=== PATIENT | female | born 1945 | race Hispanic/Latino ===

== ENCOUNTER → 2017-05-21 | Outpatient (CLI) | payer MEDICARE | END | disposition home or self-care (01) | LOC: SHCH 12:51 | PROVIDERS: ATTEND Internal Medicine Cardiovascular Disease | DX: R00.2 Palpitations (principal) | CPT/HCPCS: 93306 ==

== ENCOUNTER → 2018-01-26 | Outpatient (CLI) | payer MEDICARE | END | disposition home or self-care (01) | LOC: RAH 11:11 | PROVIDERS: ATTEND Physical Medicine & Rehabilitation | DX: M16.11 Unilateral primary osteoarthritis, right hip (principal) | CPT/HCPCS: 73502 ==

== ENCOUNTER → 2018-03-25 | Outpatient (CLI) | payer MEDICARE | END | disposition home or self-care (01) | LOC: RAH 10:28 | PROVIDERS: ATTEND Physical Medicine & Rehabilitation | DX: M17.11 Unilateral primary osteoarthritis, right knee (principal); M21.061 Valgus deformity, not elsewhere classified, right knee | CPT/HCPCS: 73560 ==

== ENCOUNTER → 2019-11-23 | Outpatient (CLI) | payer MEDICARE | END | disposition home or self-care (01) | LOC: SHCH 12:40 | PROVIDERS: ATTEND Internal Medicine Cardiovascular Disease | DX: I87.2 Venous insufficiency (chronic) (peripheral) (principal); I73.9 Peripheral vascular disease, unspecified | CPT/HCPCS: 93925; 93970 ==

== ENCOUNTER 2021-11-20 06:55 | Day surgery (SDC) | payer MEDICARE ==
[2021-11-18 12:45] LABS: BASOPHILS % (AUTO) 0.5 % (0.0-5.0); EOSINOPHILS % (AUTO) 1.5 % (0.0-8.0); HEMATOCRIT 38.4 % (36-48); LYMPHOCYTES % (AUTO) 17.7 % (21.0-51.0); MEAN CORPUSCULAR HEMOGLOBIN 31.7 pg (27.0-33.0); MEAN CORPUSCULAR HGB CONC 32.6 g/dL (32.0-36.0); MEAN CORPUSCULAR VOLUME 97.5 fL (79-99); MONOCYTES % (AUTO) 9.8 % (3.0-13.0); NEUTROPHILS % (AUTO) 70.2 % (40.0-77.0); PLATELET COUNT (AUTO) 313 K/uL (130-400); RED BLOOD CELL COUNT(AUTO) 3.94 MIL/uL (4.00-5.50); RED CELL DISTRIBUTION WIDTH 12.4 % (11.0-15.5); WHITE BLOOD COUNT (AUTO) 8.6 K/uL (4.8-10.8)
[2021-11-18 12:54] LABS: CREATININE 1.8 mg/dL (0.5-1.5); POTASSIUM 4.6 mmol/L (3.5-5.1)
[2021-11-18 12:55] LABS: PROTHROMBIN TIME 10.9 SEC (9.6-11.6)
[2021-11-18 12:56] LABS: PARTIAL THROMBOPLASTIN TIME 29.3 SEC (26.3-35.5)
[2021-11-19 09:25] VITALS: BP 143/76
[2021-11-20] VITALS (9 sets, daily range): BP systolic 110–168; BP diastolic 58–84
[~2021-11-20] VITALS: Ht 157.5 cm; Wt 77.1 kg
[~2021-11-20 06:55] MED LIST: CETI-89 PO; DILT180T12 PO; LISI1TAB51 PO; MULT-1203 PO; RIVA20TA PO; ROSU20TA31 PO; vitamin d PO
[2021-11-20 07:28] LABS: CREATININE 1.5 mg/dL (0.5-1.5); POTASSIUM 4.3 mmol/L (3.5-5.1)
[2021-11-20] MEDS ORDERED: CEFAZOLIN SODIUM 1 GM VIAL IVP ONE (08:00)
[2021-11-20] MEDS ORDERED: LIDOCAINE HCL 1% 20 ML VIAL ONE (08:21)
[2021-11-20] MEDS ORDERED: BUPIVACAINE/PF 0.25% 30ML VIAL IJ ONE (08:22)
[2021-11-20] MEDS ORDERED: MIDAZOLAM HCL 1 MG/ML 2ML VIAL ONE ×2 (08:22→09:14)
[2021-11-20] MEDS ORDERED: MEPERIDINE-PF 25 MG/ML SYG ONE ×2 (08:23→09:15)
[2021-11-20] MEDS: 0.9%NACL 1000ML 1,000 ML IV SCH ×2 (08:29→13:33)
[2021-11-20] MEDS ORDERED: TRAM50TA4 PO (10:11)
[2021-11-20] MEDS ORDERED: ACETAMINOPHEN WITH CODEINE 1 TAB TAB PO PRN (10:30)
== END 2021-11-20 13:20 | disposition home or self-care (01) ==
LOC: DAH 06:55
PROVIDERS: ATTEND Internal Medicine Cardiovascular Disease
DX: I49.5 Sick sinus syndrome (principal); I48.0 Paroxysmal atrial fibrillation; I10 Essential (primary) hypertension; E78.5 Hyperlipidemia, unspecified; I73.9 Peripheral vascular disease, unspecified; I87.2 Venous insufficiency (chronic) (peripheral); K21.9 Gastro-esophageal reflux disease without esophagitis; M19.90 Unspecified osteoarthritis, unspecified site; Z98.890 Other specified postprocedural states; Z82.49 Family history of ischemic heart disease and other diseases of the circulatory system; Z83.3 Family history of diabetes mellitus; Z82.3 Family history of stroke; Z79.899 Other long term (current) drug therapy; Z79.01 Long term (current) use of anticoagulants
CPT/HCPCS: 80048 ×2; 85025; 85610; 85730; 36415 ×2; 93005; 33208; 71045; C1785; C1898 ×2; J0690; J7030; J3490; J2250 ×2; J2175 ×2; A4215; A4335; A4222; A4221; A4663; A4216; A6206; A4606; A4223 ×3; 99156; 99157

== ENCOUNTER 2023-12-02 07:33 | Day surgery (SDC) | payer MEDICARE ==
[2023-11-30 09:08] LABS: BASOPHILS # (AUTO) 0.02 K/uL (0.00-0.20); BASOPHILS % (AUTO) 0.4 % (0.0-5.0); EOSINOPHILS # (AUTO) 0.09 K/uL (0.00-0.70); EOSINOPHILS % (AUTO) 1.7 % (0.0-8.0); HEMATOCRIT 40.5 % (36-48); IMMATURE GRANULOCYTE ABSOLUTE 0.01 K/uL (0-1); LYMPHOCYTES # (AUTO) 1.8 K/uL (1.0-4.8); LYMPHOCYTES % (AUTO) 32.4 % (21.0-51.0); MEAN CORPUSCULAR HGB CONC 31.1 g/dL (32.0-36.0); MEAN CORPUSCULAR VOLUME 99.8 fL (79-99); MONOCYTES # (AUTO) 0.6 K/uL (0.1-1.0); MONOCYTES % (AUTO) 11.7 % (3.0-13.0); NEUTROPHILS # (AUTO) 2.9 K/uL (1.8-7.7); NEUTROPHILS % (AUTO) 53.6 % (40.0-77.0); PLATELET COUNT (AUTO) 213 K/uL (130-400); RED BLOOD CELL COUNT(AUTO) 4.06 MIL/uL (4.00-5.50); WHITE BLOOD COUNT (AUTO) 5.4 K/uL (4.8-10.8)
[2023-11-30 09:09] VITALS: BP 173/77; PULSE 77; RESP 16
[2023-11-30 09:18] LABS: CREATININE 1.6 mg/dL (0.5-1.0); POTASSIUM 3.5 mmol/L (3.5-5.1)
[2023-11-30 09:32] LABS: INR 1.11 (0.85-1.15); PROTHROMBIN TIME 11.9 SEC (9.6-11.6)
[2023-11-30 09:34] LABS: PARTIAL THROMBOPLASTIN TIME 30.2 SEC (26.3-35.5)
[~2023-12-02] VITALS: Ht 157.5 cm; Wt 63.3 kg
[2023-12-02] VITALS (11 sets, daily range): BP systolic 126–170; BP diastolic 53–87; PULSE 70–86; RESP 15–18
[~2023-12-02 07:33] MED LIST changes: -DILT180T12 PO; +ERGO500093 PO; +FOLI1TAB85 PO; +FURO20TA6 PO; +GLUC1CAP14 PO; +HYDR25 PO; +ISOS30TA92 PO; -LISI1TAB51 PO; +METO50TA9 PO; -MULT-1203 PO; -ROSU20TA31 PO; +ROSU20TA73 PO; +TURM500C13 PO; -vitamin d PO
[2023-12-02] MEDS: 0.9%NACL 1000ML 1,000 ML IV ONE (08:41)
[2023-12-02] MEDS ORDERED: 0.9%NACL 1000ML 1,000 ML IV SCH ×2 (09:00→12:00)
[2023-12-02] MEDS ORDERED: LIDOCAINE HCL 400MG/20ML VIAL ONE (10:42)
[2023-12-02] MEDS ORDERED: HEParin-NS 1,000 UNIT/500 ML 1,000 ML IV ONE (10:42)
[2023-12-02] MEDS ORDERED: IOHEXOL 350 MG/ML 100ML INFUS..BTL IV ONE (10:42)
[2023-12-02] MEDS ORDERED: NITROGLYCERIN 50MG VIAL ONE (10:43)
[2023-12-02] MEDS ORDERED: BIVALIRUDIN 250 MG/VIAL IV ONE (10:52)
[2023-12-02] MEDS ORDERED: FENTanyl CITRate PF 50 MCG/1 ML 2ML VIAL ONE (10:53)
[2023-12-02] MEDS ORDERED: MIDAZOLAM HCL 1 MG/ML 2ML VIAL ONE (10:53)
[2023-12-02] MEDS ORDERED: IOHEXOL-350 50ML VIAL IV ONE (11:27)
[2023-12-02] MEDS ORDERED: LABETALOL 20MG SYG IV ONE (11:33)
[2023-12-02] MEDS ORDERED: NITROGLYCERIN 0.4 MG SL TAB SL PRN (12:00)
[2023-12-02] MEDS ORDERED: DEXTROSE 50%-WATER 50 ML DISP.SYRIN IV PRN (12:00)
[2023-12-02] MEDS ORDERED: GLUCAGON 1MG KIT 1 MG ML IM PRN (12:00)
[2023-12-02] MEDS ORDERED: METOPROLOL TARTRATE 1 MG/ML 5ML VIAL IV PRN (12:00)
[2023-12-02] MEDS ORDERED: INSULIN humuLIN R 100 UNIT/ML 3ML SQ SCH (16:30)
== END 2023-12-02 16:05 | disposition home or self-care (01) ==
LOC: DAH 07:33
PROVIDERS: ATTEND Internal Medicine Cardiovascular Disease
DX: I25.110 Atherosclerotic heart disease of native coronary artery with unstable angina pectoris (principal); I10 Essential (primary) hypertension; M19.90 Unspecified osteoarthritis, unspecified site; K21.9 Gastro-esophageal reflux disease without esophagitis; I48.21 Permanent atrial fibrillation; I42.0 Dilated cardiomyopathy; E78.5 Hyperlipidemia, unspecified; Z95.0 Presence of cardiac pacemaker; Z79.01 Long term (current) use of anticoagulants; Z79.899 Other long term (current) drug therapy
CPT/HCPCS: 80048; 85025; 85610; 85730; 36415; 71045; 93005; 93458; C1894 ×2; J3010; J3490 ×2; J7030; J2250; J1644; Q9967 ×2; A4215; A4335; A4222; A4221; A4663; A4216; A4606; Q9965; A4223 ×3; A4554; 96360; 96361; 99156; 99157; J0583

== ENCOUNTER → 2024-01-05 | Outpatient (CLI) | payer MEDICARE ==
[~2024-01-05] MED LIST changes: -FURO20TA6 PO; -HYDR25 PO; -ISOS30TA92 PO; -RIVA20TA PO; -ROSU20TA73 PO; +ROSU20TA98 PO; -TURM500C13 PO
== END | disposition home or self-care (01) ==
LOC: RAH 14:32
PROVIDERS: ATTEND Thoracic Surgery (Cardiothoracic Vascular Surgery)
DX: J90 Pleural effusion, not elsewhere classified (principal); J98.11 Atelectasis; R06.02 Shortness of breath; I25.10 Atherosclerotic heart disease of native coronary artery without angina pectoris; I51.7 Cardiomegaly; Z95.1 Presence of aortocoronary bypass graft
CPT/HCPCS: 71046

== ENCOUNTER → 2024-04-13 | Outpatient (CLI) | payer MEDICARE ==
[~2024-04-13] MED LIST changes: +ASPI-1443 PO; +CETI10CA5 PO; +CYAN100T45 PO; +FERS325 PO; +FOLI0.8T22 PO; +FOLI1 PO; +FURO20TA6 PO; +RIVA20TA PO
== END | disposition home or self-care (01) ==
LOC: SHCH 15:34
PROVIDERS: ATTEND Internal Medicine Cardiovascular Disease
DX: I25.10 Atherosclerotic heart disease of native coronary artery without angina pectoris (principal)
CPT/HCPCS: 93306

== ENCOUNTER 2024-05-09 08:42 | Day surgery (SDC) | payer MEDICARE ==
[2024-05-08 10:37] LABS: BASOPHILS # (AUTO) 0.03 K/uL (0.00-0.20); BASOPHILS % (AUTO) 0.5 % (0.0-5.0); EOSINOPHILS # (AUTO) 0.13 K/uL (0.00-0.70); HEMATOCRIT 35.1 % (36-48); IMMATURE GRANULOCYTE ABSOLUTE 0.03 K/uL (0-1); LYMPHOCYTES # (AUTO) 1.6 K/uL (1.0-4.8); LYMPHOCYTES % (AUTO) 23.8 % (21.0-51.0); MEAN CORPUSCULAR HEMOGLOBIN 31.9 pg (27.0-33.0); MEAN CORPUSCULAR HGB CONC 30.8 g/dL (32.0-36.0); MEAN CORPUSCULAR VOLUME 103.5 fL (79-99); MONOCYTES # (AUTO) 0.7 K/uL (0.1-1.0); MONOCYTES % (AUTO) 10.7 % (3.0-13.0); NEUTROPHILS # (AUTO) 4.1 K/uL (1.8-7.7); NEUTROPHILS % (AUTO) 62.5 % (40.0-77.0); PLATELET COUNT (AUTO) 287 K/uL (130-400); RED BLOOD CELL COUNT(AUTO) 3.39 MIL/uL (4.00-5.50); RED CELL DISTRIBUTION WIDTH 15.4 % (11.0-15.5); WHITE BLOOD COUNT (AUTO) 6.6 K/uL (4.8-10.8)
[2024-05-08 10:46] VITALS: BP 135/66; PULSE 81; RESP 18; TEMP 97.2
[2024-05-08 10:47] LABS: INR 1.51 (0.85-1.15); PROTHROMBIN TIME 16.2 SEC (9.6-11.6)
[2024-05-08 10:48] LABS: CREATININE 1.3 mg/dL (0.5-1.0); POTASSIUM 4.2 mmol/L (3.5-5.1)
[2024-05-08 10:49] LABS: PARTIAL THROMBOPLASTIN TIME 40.6 SEC (26.3-35.5)
--- NOTE | 2024-05-08 11:23 | EKG ---
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
--- NOTE | 2024-05-08 13:05 | NUR ---
report reported bmp/cbc/pt/ptt/inr to honorio hyman. ok to proceed
--- NOTE | 2024-05-08 15:52 | HMCIMG ---
Exam Type: CHEST 1VW Clinical Information: PREOP Comparison: None Findings: There is cardiomegaly and there is status post median sternotomy. The lungs are clear of infiltrates. Left-sided cardiac pacemaker is noted with leads in place. Impression: Clear lungs.
[~2024-05-09] VITALS: Ht 157.5 cm; Wt 58.3 kg
[2024-05-09] VITALS (9 sets, daily range): BP systolic 109–144; BP diastolic 46–68; PULSE 70–75; RESP 14–18; TEMP 97.4–97.9
[~2024-05-09 08:42] MED LIST changes: -CETI-89 PO; -CYAN100T45 PO; +FAMO10TA39 PO; -FERS325 PO; -FOLI1 PO; -FOLI1TAB85 PO; -GLUC1CAP14 PO; +LISI2.5T13 PO; +METO-409 PO; -METO50TA9 PO; +SPIR25TA6 PO; +probiotic PO
[2024-05-09] MEDS: 0.9%NACL 1000ML 1,000 ML IV SCH (09:53)
[2024-05-09] MEDS ORDERED: IOHEXOL 350 MG/ML 100ML INFUS..BTL IV ONE ×2 (12:08→12:53)
[2024-05-09] MEDS ORDERED: HEParin-NS 1,000 UNIT/500 ML 1,000 ML IV ONE (12:08)
[2024-05-09] MEDS ORDERED: HEParin 10,000 UNIT/10ML (1,000 UNIT/ML) VIAL ONE (12:08)
[2024-05-09] MEDS ORDERED: LIDOCAINE HCL 400MG/20ML VIAL ONE (12:08)
[2024-05-09] MEDS ORDERED: NITROGLYCERIN 50MG VIAL ONE (12:09)
[2024-05-09] MEDS ORDERED: BIVALIRUDIN 250 MG/VIAL IV ONE (12:09)
[2024-05-09] MEDS ORDERED: FENTanyl CITRate PF 50 MCG/1 ML 2ML VIAL ONE (12:15)
[2024-05-09] MEDS ORDERED: MIDAZOLAM HCL 1 MG/ML 2ML VIAL ONE (12:16)
--- NOTE | 2024-05-09 13:23 | PRN ---
Left Heart Cath-German PROCEDURE: 1. Right common femoral arterial sheath placement. 2. Selective coronary angiogram. 3. Left heart catheterization. 4. Left ventriculogram. Five. Saphenous vein graft cannulation x2 6. Left internal mammary arteriogram 7. Left subclavian arteriogram INDICATIONS: Ischemic cardiomyopathy Unstable angina DESCRIPTION OF PROCEDURE: The patient was brought to the catheterization suite and prepped and draped in sterile fashion. An IV was started, if not already in place and both groins were exposed for arterial access. 1% lidocaine was used for local anesthesia and then a micropuncture kit was used to gain access and once free-flowing blood was seen, modified Seldinger technique was utilized to place a 6 Danish sheath into the right common femoral artery. Next, preformed JL4 and JR4 Catheters were then used to selectively engage the [place] coronary vessels and multiple hand contrast injections were performed in different views to define the coron miguel anatomy. The JR4 catheter was used to engage the saphenous vein grafts x2 and then to engage the left subclavian artery where a left subclavian arteriogram was performed. Next an extended J wire was then placed into the distal left subclavian artery and brachial artery and the JR4 catheter was removed and replaced with an IMT catheter which was then used to selectively engage the left internal mammary artery. Pressure measurements were obtained and then an arteriogram was performed to assess patency of WINSTON. Next IMT catheter was removed over J-wire and then a left graft seeker was utilized to look for any grafts which may be better engaged with this type of catheter but again only went into 2 believed to be stumps confirming saphenous vein graft occ lusion x2 Next, a 6 Danish angled pigtail catheter was used to cross the aortic valve. Pressure measurements were obtained and then a left ventriculogram was performed in the 30 IBRAHIM position. Next pullback method was performed. Next sheath shot was done and then a Mynx device was used for closure of arteriotomy site. No complications occurred. FINDINGS: The left main artery has sequential lesions of 85% in its proximal and distal segment. This is a calcified vessel. The ostial LAD and proximal LAD has significant calcification noted with 70-75% stenosis present. WINSTON anastomosed in to the LAD is occluded before or at anast omosis site. The ostial and proximal left circumflex is significantly calcified with a stenosis of 75%. Saphenous vein graft to obtuse marginal branch system is occluded. The ostial right coronary artery has a 60-70% stenosis which is significantly calcified with some dampening appreciated. This is a right dominant system. The RPL and PDA are both patent. The saphenous vein graft anastomosed into the distal RCA is noted to be occluded. LVEDP was recorded at 11 mmHg. There was no evidence of aortic stenosis or mitral regurgitation. Estimated ejection fraction is at 45% Anteroapical and inferoapical hypokinesis noted RECOMMENDATIONS: Patient's iliac anatomy and common femoral anatomy demonstrates small lumen arteries which would not be amenable to Impella placement Review films with cardiovascular team to see if patient is a candidate for redo operation versus high-risk angioplasty and stenting of left main LAD and left circumflex artery IV fluids for the next 4 hours Discharge home later today Initiate antianginals to include ranolazine at 500 mg twice daily and isosorbide at 30 mg daily TATYANA GERMAN MD May 09, 2024 13:23
[2024-05-09] MEDS ORDERED: GLUCAGON 1MG KIT 1 MG ML IM PRN (13:30)
[2024-05-09] MEDS ORDERED: 0.9%NACL 1000ML 1,000 ML IV SCH (13:30)
[2024-05-09] MEDS ORDERED: DEXTROSE 50%-WATER 50 ML DISP.SYRIN IV PRN (13:30)
--- NOTE | 2024-05-09 14:38 | NUR ---
report: report given to alvaro haddad rn
[2024-05-09] MEDS ORDERED: INSULIN humuLIN R 100 UNIT/ML 3ML SQ SCH (16:30)
== END 2024-05-09 17:40 | disposition home or self-care (01) ==
LOC: DAH 08:42
PROVIDERS: ATTEND Internal Medicine Cardiovascular Disease
DX: I25.118 Atherosclerotic heart disease of native coronary artery with other forms of angina pectoris (principal); I11.0 Hypertensive heart disease with heart failure; I50.42 Chronic combined systolic (congestive) and diastolic (congestive) heart failure; I25.5 Ischemic cardiomyopathy; I73.9 Peripheral vascular disease, unspecified; M19.90 Unspecified osteoarthritis, unspecified site; K21.9 Gastro-esophageal reflux disease without esophagitis; E78.5 Hyperlipidemia, unspecified; I48.21 Permanent atrial fibrillation; I42.0 Dilated cardiomyopathy; I87.2 Venous insufficiency (chronic) (peripheral); Z95.1 Presence of aortocoronary bypass graft; Z95.0 Presence of cardiac pacemaker; Z79.01 Long term (current) use of anticoagulants; Z79.82 Long term (current) use of aspirin; Z79.899 Other long term (current) drug therapy
CPT/HCPCS: 80048; 85025; 85610; 85730; 36415; 71045; 93005; 93459; 82948; C1769; C1894 ×2; C1760; J3010; J3490 ×2; J7030; J2250; J1644; Q9967; A4215; A4222; A4221; A4663; A4216; A4606; Q9965 ×2; A4223 ×3; 96360; 96361; 99156; 99157; J0583

== ENCOUNTER → 2024-05-31 | Outpatient (CLI) | payer MEDICARE ==
--- NOTE | 2024-06-07 08:33 | HMCSR ---
APPROVED REPORT Bilateral Lower Extremity Venous Study for Venous Competence., DVT. Indications i87.1, i87.2 Vein Imaging CFV (R): Normal flow, augmentation and compression. No evidence of DVT. 10.4mm 1094ms of reflux. SFJ (R): Normal flow, augmentation and compression. No evidence of DVT. FEM (R): Normal flow, augmentation and compression. No evidence of DVT. POP (R): Normal flow, augmentation and compression. No evidence of DVT. DFV (R): Normal flow, augmentation and compression. No evidence of DVT. PTV (R): Normal flow, augmentation and compression. No evidence of DVT. Peroneals (R): Normal flow, augmentation and compression. No evidence of DVT. CFV (L): Normal flow, augmentation and compression. No evidence of DVT. 9.9mm no reflux. SFJ (L): Normal flow, augmentation and compression. No evidence of DVT. FEM (L): Normal flow, augmentation and compression. No evidence of DVT. POP (L): Normal flow, augmentation and compression. No evidence of DVT. DFV (L): Normal flow, augmentation and compression. No evidence of DVT. PTV (L): Normal flow, augmentation and compression. No evidence of DVT. Peroneals (L): Normal flow, augmentation and compression. No evidence of DVT. Technologist Impression Deep veins of bilateral Lower extremities appear patent and compressible without thrombus. Deep vein reflux seen in RCFV Superficial venous insufficiency in RGSV RGSV junction 3.9mm 1211ms thigh 2.3mm 0.0ms knee2.2mm 478ms calf 1.9mm 1294ms RSSV Prox 2.5mm 0.0ms Mid 1.9mm 239ms LGSV Junction 2.8mm 1167 thigh (Removed) knee (Removed) calf (Removed) LSSV Prox 3.8mm 0.0ms Mid 2.3mm 0.0ms Conclusion Deep vein reflux seen in RCFV Superficial venous insufficiency in [facility] Consider formal venography with intravascular ultrasound if deep venous reflux is suspected to be sec ondary to iliac vein compression Conclusion Deep vein reflux seen in RCFV Superficial venous insufficiency in [facility] Consider formal venography with intravascular ultrasound if deep venous reflux is suspected to be sec ondary to iliac vein compression
== END | disposition home or self-care (01) ==
LOC: SHCH 14:49
PROVIDERS: ATTEND Internal Medicine Cardiovascular Disease
DX: I87.1 Compression of vein (principal); I87.2 Venous insufficiency (chronic) (peripheral)
CPT/HCPCS: 93970